=== PATIENT | male | born 1995 | race Caucasian/White ===

== ENCOUNTER 2020-01-19 23:31 | Inpatient (IN) | payer MEDICAID, OTHER ==
[~2020-01-19] VITALS: Ht 175.3 cm; Wt 77.1 kg
[2020-01-20] MEDS ORDERED: ONDANSETRON HCL/PF 4 MG/2 ML VIAL IVP ONE
[2020-01-20] MEDS ORDERED: IV NS 0.9% 1,000 ML BAG IV ONE
--- NOTE | 2020-01-20 | NUR ---
PT CAME TO THE ED C/O GENERALIZED ABD PAIN +N/V SINCE YESTERDAY. PT AAOX4, VSS, RESPIRATIONS EVEN AND UNLABORED ON RA W/ NAD NOTED. PT CONNECTED TO THE MONITOR AND POX.
[2020-01-20] MEDS ORDERED: ONDANSETRON HCL/PF 4 MG/2 ML VIAL ONE ×2 (00:01→01:26)
[2020-01-20 00:11] LABS: BASOPHILS # (AUTO) 0.1 /CMM (0.0-0.2); BASOPHILS % (AUTO) 0.5 % (0.0-2.0); EOSINOPHILS % (AUTO) 0.2 % (0.0-6.0); HEMATOCRIT 45 % (39-51); LYMPHOCYTES # (AUTO) 0.4 /CMM (0.8-4.8); LYMPHOCYTES % (AUTO) 2.2 % (20.0-44.0); MEAN CORPUSCULAR HGB CONC 33 g/dl (31.0-36.0); MEAN CORPUSCULAR VOLUME 97 fL (80-96); MONOCYTES # (AUTO) 0.4 /CMM (0.1-1.30); MONOCYTES % (AUTO) 2.1 % (2.0-12.0); NEUTROPHILS # (AUTO) 17.2 /CMM (1.8-8.9); PLATELET COUNT (AUTO) 283 /CMM (150-450); RED BLOOD CELL COUNT(AUTO) 4.66 MIL/uL (4.5-6.0); WHITE BLOOD COUNT (AUTO) 18.1 K/uL (4.3-11.0)
[2020-01-20 00:19] LABS: CALCIUM, SERUM 9.3 mg/dL (8.5-10.1); CREATININE 1.3 mg/dL (0.6-1.3); POTASSIUM 4.1 mmol/L (3.5-5.1)
[2020-01-20 00:25] LABS: ALBUMIN 4.5 g/dL (3.4-5.0); BILIRUBIN,DIRECT 0.2 mg/dL (0.0-0.2); BILIRUBIN,TOTAL 0.8 mg/dL (0.2-1.0); TOTAL PROTEIN, SERUM 8.5 g/dL (6.4-8.2)
--- NOTE | 2020-01-20 00:57 | NUR ---
URINE COLLECTED AND SENT TO LAB
[2020-01-20 01:12] LABS: APPEARANCE,URINE Clear (CLEAR); BILIRUBIN,URINE SMALL (NEGATIVE); BLOOD, URINE Moderate Ery/uL (NEGATIVE); COLOR,URINE Yellow (YELLOW); KETONES,URINE 80 (NEGATIVE); LEUKOCYTE ESTERASE ,URINE Negative (NEGATIVE); NITRITE, URINE Negative (NEGATIVE); PROTEIN,URINE 30 mg/dl (NEGATIVE); UGLUCOSE Negative (NEGATIVE); UROBILINOGEN,URINE 0.2 EU/dL (0.2)
[2020-01-20 01:25] LABS: BACTERIA,URINE Few /HPF (None Seen); MUCUS,URINE Many /LPF (None Seen); RBC,URINE TOO NUMEROUS TO COUN /HPF (0-2); SQUAMOUS EPITHELIAL CELL,UR Rare /HPF (None Seen)
[2020-01-20] MEDS ORDERED: DICYCLOMINE HCL INJ 20 MG/2 ML AMPUL IM ONE ×2 (01:25→01:30)
[2020-01-20] MEDS ORDERED: ONDANSETRON HCL/PF 4 MG/2 ML VIAL IV ONE (01:30)
[2020-01-20] MEDS ORDERED: PIPERACILLIN /TAZOBACTAM 3.375 G VIAL IV ONE (02:56)
[2020-01-20] MEDS ORDERED: MORPHINE SULFATE INJ 2 MG/ML DISP.SYRIN ONE (02:56)
[2020-01-20] MEDS ORDERED: MORPHINE SULFATE INJ 2 MG/ML DISP.SYRIN IV ONE (03:00)
[2020-01-20] MEDS ORDERED: PIPERACILLIN /TAZOBACTAM 3.375 G in IV D5W 50 ML IV ONE (03:00)
--- NOTE | 2020-01-20 04:08 | NUR ---
REPORT GIVEN TO TONY JAIME FOR PIPPA
--- NOTE | 2020-01-20 04:54 | NUR ---
PT TRANSFERRED TO ROOM IN STABLE CONDITION
--- NOTE | 2020-01-20 05:17 | NUR ---
RN OPENING NOTES RECEIVED REPORT FROM RN SURGERY RUBIA. Pt ARRIVED TO THE FLOOR VIA WHEELCHAIR. Pt WAS ABLE TO WALK TO ROOM BED WITH STEADY GAIT. Pt IS A/OX4, VERBAL, ABLE TO MAKE NEEDS KNOWN. NO S/S OF ACUTE DISTRESS OR SOB NOTED. RESPIRATIONS EVEN AND UNLABORED WITH EQUAL CHEST RISE AND FALL. IV ACCESS ON RAC #20G, SL. SAFETY MEASURES IN PLACE. BED LOW, LOCKED, HOB ELEVATED, SIDE RAILS UP, CALL LIGHT AND BEDSIDE TABLE WITHIN REACH. WILL CONTINUE TO MONITOR Pt's CONDITION AND SAFETY THROUGHOUT THE NIGHT.
--- NOTE | 2020-01-20 05:21 | NUR ---
RN NOTES Pt REFUSED HEAD TO TOE SKIN ASSESSMENT. PER Pt SAID HE HAS NO WOUNDS, NO BRUISES ON HIS BODY.
[2020-01-20 05:35] VITALS: BP 134/70
[2020-01-20] MEDS ORDERED: ONDANSETRON HCL/PF 4 MG/2 ML VIAL IVP PRN (06:30)
--- NOTE | 2020-01-20 07:00 | NUR ---
RN CLOSING NOTES NO SIGNIFICANT CHANGES IN Pt's CONDITION. Pt REMAINED STABLE PER BASELINE. NO S/S OF ACUTE DISTRESS OR SOB NOTED. ALL NEEDS MET AND ATTENDED TO. SAFETY MEASURES IN PLACE. Pt IS RESTING COMFORTABLY IN BED. WILL ENDORSE TO DAYSHIFT RN Pt's PIPPA.
[2020-01-20] MEDS: IV NS 0.9% 1,000 ML IV PRN ×2 (07:06→15:33)
--- NOTE | 2020-01-20 07:20 | NUR ---
MS RN NOTES RECEIVED PATIENT IN BED, ALERT AND AWAKE ORIENTED X4. NO SOB. C/O ABDOMINAL PAIN 08/05, TOLERABLE PER PATIENT AND DOES NOT WANT ANY PAIN MEDICATION AT THIS TIME. AMBULATORY WITH STEADY GAIT. REMAINS NPO. RIGHT AC # 20 INTACT AND PATENT INFUSING NS @ 100 ML/HR. BED IN LOWEST POSITION ,LOCKED. BED SIDERAILS UPX2. CALL LIGHT WITHIN REACH. ABLE TO VERBALIZE NEEDS.
[2020-01-20 08:00] VITALS: BP 121/70
[2020-01-20] MEDS: PANTOPRAZOLE 40 MG VIAL IV SCH (08:17)
[2020-01-20] MEDS: PIPERACILLIN /TAZOBACTAM 3.375 G in IV D5W 100 ML IV SCH ×2 (10:02→21:07)
--- NOTE | 2020-01-20 11:40 | NUR ---
MS RN NOTES COVID TEST DONE, SENT TO LAB.
[2020-01-20] MEDS ORDERED: PIPERACILLIN /TAZOBACTAM 4.5 G in IV D5W 50 ML IV SCH (12:00)
[2020-01-20 15:47] LABS: CREATININE 1.1 mg/dL (0.6-1.3)
[2020-01-20 16:01] LABS: BASOPHILS % (AUTO) 0.2 % (0.0-2.0); HEMATOCRIT 45 % (39-51); HEMOGLOBIN 14.6 g/dL (13.5-17.5); LYMPHOCYTES # (AUTO) 1.5 /CMM (0.8-4.8); LYMPHOCYTES % (AUTO) 11.6 % (20.0-44.0); MEAN CORPUSCULAR HGB CONC 33 g/dl (31.0-36.0); MEAN CORPUSCULAR VOLUME 98 fL (80-96); MONOCYTES # (AUTO) 0.9 /CMM (0.1-1.30); MONOCYTES % (AUTO) 7.2 % (2.0-12.0); NEUTROPHILS # (AUTO) 10.6 /CMM (1.8-8.9); PLATELET COUNT (AUTO) 242 /CMM (150-450); RED BLOOD CELL COUNT(AUTO) 4.55 MIL/uL (4.5-6.0); WHITE BLOOD COUNT (AUTO) 13.1 K/uL (4.3-11.0)
--- NOTE | 2020-01-20 16:45 | NUR ---
MS RN NOTES PATIENT LEFT VIA BED ACCOMPANIED BY 2 OR PERSONNEL. PATIENT LEFT IN STABLE CONDITION .
--- NOTE | 2020-01-20 16:45 | NUR ---
MS RN NOTES PATIENT OFF UNIT, IN OR FOR SCHEDULED LAPAROSCOPY, APPENDECTOMY, POSSIBLE OPEN.
[2020-01-20] MEDS ORDERED: MIDAZOLAM HCL 2 MG/2ML VIAL ONE (16:47)
[2020-01-20] MEDS ORDERED: FAMOTIDINE/PF INJ 20 MG/2 ML VIAL IV ONE (16:47)
[2020-01-20] MEDS ORDERED: FENTANYL PF 250MCG/5ML AMPUL ONE (16:47)
[2020-01-20] MEDS ORDERED: ROCURONIUM BROMIDE 50 MG/5 ML ONE (16:48)
[2020-01-20] MEDS ORDERED: LIDOCAINE HCL/MPF 1% 30 ML VIAL IJ ONE (17:20)
[2020-01-20] MEDS ORDERED: BUPIVACAINE MPF 0.5% W/EPI INJ 30 ML VIAL ONE (17:20)
--- NOTE | 2020-01-20 18:32 | NUR ---
MS RN NOTES PATIENT STILL IN OR. WILL ENDORSE TO ONCOMING SHIFT.
--- NOTE | 2020-01-20 19:25 | NUR ---
Recieved from surgery awake and alert denies pain IV site rt AC NS 100ml hr infusing abd 3 sites GLUED sites cell phone given to him.
[2020-01-20 19:39] VITALS: BP 154/70
[2020-01-20 19:56] LABS: APPEARANCE,URINE CLEAR (CLEAR); BILIRUBIN,URINE NEGATIVE (NEGATIVE); BLOOD, URINE SMALL Ery/uL (NEGATIVE); COLOR,URINE YELLOW (YELLOW); KETONES,URINE NEGATIVE (NEGATIVE); LEUKOCYTE ESTERASE ,URINE NEGATIVE (NEGATIVE); NITRITE, URINE NEGATIVE (NEGATIVE); PH,URINE 7.5 (5.0-8.0); PROTEIN,URINE NEGATIVE (NEGATIVE); UGLUCOSE NEGATIVE (NEGATIVE); UROBILINOGEN,URINE 0.2 EU/dL (0.2)
[2020-01-20 20:00] VITALS: BP 154/70
[2020-01-20 20:30] VITALS: BP 122/58
[2020-01-21] MEDS: MORPHINE SULFATE INJ 2 MG/ML DISP.SYRIN IV PRN ×2 (03:01→07:58)
--- NOTE | 2020-01-21 04:45 | NUR ---
ENDING NOTES: ALERT AND ORIENTATED MEDICATED X1 mORPHONE iv AND EFFECTIVE FOR SURGICAL SITE iNC sPIR AT THE BED SIDE WILL EXPLAIN THE USE AND BENEFITS IN THE am WHEN MORE AWAKE. NO C/O NAUSEA OR VOMITING USE HIS CELL PHONE TO TALK TO HIS FAMILY
[2020-01-21] MEDS: PIPERACILLIN /TAZOBACTAM 3.375 G in IV D5W 100 ML IV SCH ×3 (05:12→21:42)
[2020-01-21 06:51] LABS: THYROID STIMULATING HORMONE 0.408 uIU/mL (0.358-3.74)
[2020-01-21 06:55] LABS: CALCIUM, SERUM 8.2 mg/dL (8.5-10.1); MAGNESIUM 1.6 mg/dL (1.8-2.4); POTASSIUM 4.2 mmol/L (3.5-5.1)
[2020-01-21 07:03] LABS: BASOPHILS % (AUTO) 0.2 % (0.0-2.0); HEMATOCRIT 42 % (39-51); HEMOGLOBIN 13.7 g/dL (13.5-17.5); LYMPHOCYTES # (AUTO) 1.1 /CMM (0.8-4.8); LYMPHOCYTES % (AUTO) 8.6 % (20.0-44.0); MEAN CORPUSCULAR HGB CONC 33 g/dl (31.0-36.0); MEAN CORPUSCULAR VOLUME 99 fL (80-96); MONOCYTES % (AUTO) 7.9 % (2.0-12.0); NEUTROPHILS # (AUTO) 10.4 /CMM (1.8-8.9); NEUTROPHILS % (AUTO) 83.3 % (43.0-81.0); PLATELET COUNT (AUTO) 233 /CMM (150-450); RED BLOOD CELL COUNT(AUTO) 4.24 MIL/uL (4.5-6.0); WHITE BLOOD COUNT (AUTO) 12.5 K/uL (4.3-11.0)
[2020-01-21 08:00] VITALS: BP 128/65
--- NOTE | 2020-01-21 08:00 | NUR ---
MS RN OPENING NOTES RECEIVED PATIENT IN BED, ALERT AND AWAKE ORIENTED X4. NO SOB. NO CARDIAC OR RESPIRATORY DISTRESS NOTED. NO SOB NOTED. SATURATING WELL ON ROOM AIR. AMBULATORY WITH STEADY GAIT. IV ACCESS NOTED ON RIGHT AC # 20 INTACT AND PATENT INFUSING NS @ 100 ML/HR. SAFETY PRECAUTIONS IN PLACE. BED IN LOWEST POSITION ,LOCKED. BED SIDE RAILS UPX2. CALL LIGHT WITHIN REACH. WILL CONT TO MONITOR.
[2020-01-21] MEDS: PANTOPRAZOLE 40 MG VIAL IV SCH (08:17)
[2020-01-21] MEDS: Magnesium 1GM/D5W 100ML PREMIX 100 ML IV SCH ×2 (09:23→10:33)
[2020-01-21] MEDS ORDERED: HYDROCODONE/APAP 5/325MG TABLET PO PRN (10:00)
[2020-01-21 16:00] VITALS: BP 120/56
--- NOTE | 2020-01-21 18:51 | NUR ---
MS RN CLOSING NOTES PATIENT IN BED, ALERT AND AWAKE ORIENTED X4. NO SOB. NO CARDIAC OR RESPIRATORY DISTRESS NOTED. NO SOB NOTED. SATURATING WELL ON ROOM AIR. AMBULATORY WITH STEADY GAIT. IV ACCESS NOTED ON RIGHT AC # 20 INTACT AND PATENT INFUSING NS @ 100 ML/HR. SAFETY PRECAUTIONS IN PLACE. BED IN LOWEST POSITION ,LOCKED. BED SIDE RAILS UPX2. CALL LIGHT WITHIN REACH. WILL CONT TO MONITOR.
--- NOTE | 2020-01-21 19:55 | NUR ---
RN OPENING NOTES RECEIVED REPORT FROM PRASADHIFT RNALEAH. FOUND Pt AWAKE, RESTING IN BED. RESPIRATIONS EVEN AND UNLABORED WITH EQUAL CHEST RISE AND FALL. Pt IS A/OX4, VERBAL, ABLE TO MAKE NEEDS KNOWN. NO S/S OF ACUTE DISTRESS OR SOB NOTED. NO C/O SEVERE PAIN AT THIS TIME. IV ACCESS LOCATED ON RAC #20G; IVF NS RUNNING @100ML/HR. SAFETY MEASURES IN PLACED. BED LOW, LOCKED, HOB ELEVATED, SIDE RAILS UP, CALL LIGHT AND BEDSIDE TABLE WITHIN REACH. WILL CONTINUE TO MONITOR Pt's CONDITION THROUGHOUT THE NIGHT.
[2020-01-21 20:30] VITALS: BP 120/56
[2020-01-22] MEDS: PIPERACILLIN /TAZOBACTAM 3.375 G in IV D5W 100 ML IV SCH ×2 (05:15→13:05)
[2020-01-22] MEDS: IV NS 0.9% 1,000 ML IV PRN (05:23)
[2020-01-22 06:30] LABS: BASOPHILS % (AUTO) 0.5 % (0.0-2.0); EOSINOPHILS % (AUTO) 0.3 % (0.0-6.0); HEMATOCRIT 42 % (39-51); HEMOGLOBIN 13.7 g/dL (13.5-17.5); LYMPHOCYTES # (AUTO) 2.1 /CMM (0.8-4.8); LYMPHOCYTES % (AUTO) 25.5 % (20.0-44.0); MEAN CORPUSCULAR HGB CONC 33 g/dl (31.0-36.0); MEAN CORPUSCULAR VOLUME 99 fL (80-96); MONOCYTES # (AUTO) 0.9 /CMM (0.1-1.30); MONOCYTES % (AUTO) 10.3 % (2.0-12.0); NEUTROPHILS # (AUTO) 5.2 /CMM (1.8-8.9); NEUTROPHILS % (AUTO) 63.4 % (43.0-81.0); PLATELET COUNT (AUTO) 217 /CMM (150-450); RED BLOOD CELL COUNT(AUTO) 4.25 MIL/uL (4.5-6.0); WHITE BLOOD COUNT (AUTO) 8.2 K/uL (4.3-11.0)
--- NOTE | 2020-01-22 06:35 | NUR ---
RN CLOSING NOTES NO SIGNIFICANT CHANGES IN Pt's CONDITION. Pt REMAINED STABLE PER BASELINE. NO S/S OF ACUTE DISTRESS OR SOB NOTED DURING THE NIGHT. ALL NEEDS MET AND ATTENDED TO. SAFETY MEASURES IN PLACE. Pt IS RESTING COMFORTABLY IN BED. WILL ENDORSE TO DAYSHIFT RN Pt's PIPPA.
[2020-01-22 06:40] LABS: CALCIUM, SERUM 7.9 mg/dL (8.5-10.1); CREATININE 1.1 mg/dL (0.6-1.3); MAGNESIUM 1.8 mg/dL (1.8-2.4); POTASSIUM 3.9 mmol/L (3.5-5.1)
[2020-01-22 08:00] VITALS: BP 117/57
[2020-01-22 08:16] VITALS: BP 117/57
[2020-01-22] MEDS: PANTOPRAZOLE 40 MG VIAL IV SCH (08:29)
[2020-01-22 16:52] VITALS: BP 123/68
== END 2020-01-22 17:30 | disposition home or self-care (01) | DRG 233 ==
LOC: ER 23:32 → MEDSG2 01-20 03:37
PROVIDERS: ADMIT Nurse Practitioner Acute Care; ATTEND Nurse Practitioner Acute Care
PROC: 0DTJ4ZZ Resection of Appendix, Percutaneous Endoscopic Approach (ICD-10-PCS; principal; 2020-01-20)
DX: K35.32 Acute appendicitis with perforation, localized peritonitis, and gangrene, without abscess (principal); F17.200 Nicotine dependence, unspecified, uncomplicated; R73.9 Hyperglycemia, unspecified; Z83.3 Family history of diabetes mellitus; Z88.1 Allergy status to other antibiotic agents; Z88.2 Allergy status to sulfonamides; K38.1 Appendicular concretions
CPT/HCPCS: 36415; 71045-TC; 80048-TC; 80061-TC; 80076-TC; 81000-TC; 83690-TC; 83735-TC; 84100-TC; 84443-TC; 85025-TC; 85610-TC; 85730-TC; 86850-TC; 87081-TC; 88304-TC; C9113; G0378; J0500; J0690; J2250; J2270; J2405; J2543; J2704; J2765; J3010; J3475; J3490; J7030; J7060; U0003-CS

== ENCOUNTER 2020-12-17 20:33 | Emergency (ER) | payer MEDICAID ==
[~2020-12-17] VITALS: Ht 175.3 cm; Wt 77.1 kg
--- NOTE | 2020-12-17 21:01 | NUR ---
PT TO ER BED 1 C/O LOWER ABDOMINAL PAIN SINCE THURSDAY W/ DIARRHEA. PATIENT DENIES NAUSEA/ VOMITING. ALERT AND ORIENTED x4. DENIES SOB. CONNECTED TO THE MONITOR. CURRENTLY AMBULATING TO THE RESTROOM TO GIVE URINE.
[2020-12-17] MEDS ORDERED: KETOROLAC TROMETHAMINE INJ 30 MG/ML VIAL ONE (21:25)
[2020-12-17] MEDS ORDERED: IV NS 0.9% 1,000 ML BAG IV ONE (21:30)
[2020-12-17] MEDS ORDERED: KETOROLAC TROMETHAMINE INJ 30 MG/ML VIAL IV ONE (21:30)
[2020-12-17 21:36] LABS: BASOPHILS % (AUTO) 0.2 % (0.0-2.0); EOSINOPHILS % (AUTO) 0.1 % (0.0-6.0); HEMATOCRIT 48 % (39-51); HEMOGLOBIN 16.1 g/dL (13.5-17.5); LYMPHOCYTES # (AUTO) 1.2 /CMM (0.8-4.8); LYMPHOCYTES % (AUTO) 14.4 % (20.0-44.0); MEAN CORPUSCULAR HGB CONC 34 g/dl (31.0-36.0); MEAN CORPUSCULAR VOLUME 96 fL (80-96); MONOCYTES # (AUTO) 1.2 /CMM (0.1-1.30); MONOCYTES % (AUTO) 15.3 % (2.0-12.0); NEUTROPHILS # (AUTO) 5.7 /CMM (1.8-8.9); PLATELET COUNT (AUTO) 235 /CMM (150-450); RED BLOOD CELL COUNT(AUTO) 4.97 MIL/uL (4.5-6.0); WHITE BLOOD COUNT (AUTO) 8.2 K/uL (4.3-11.0)
--- NOTE | 2020-12-17 21:37 | NUR ---
URINE AND BLOOD COLLECTED AND SENT TO THE LAB.
[2020-12-17 21:46] LABS: CALCIUM, SERUM 8.9 mg/dL (8.5-10.1); CREATININE 1.3 mg/dL (0.6-1.3); POTASSIUM 3.7 mmol/L (3.5-5.1)
[2020-12-17 21:51] LABS: ALBUMIN 3.7 g/dL (3.4-5.0); BILIRUBIN,DIRECT 0.1 mg/dL (0.0-0.2); BILIRUBIN,TOTAL 0.3 mg/dL (0.2-1.0); TOTAL PROTEIN, SERUM 7.9 g/dL (6.4-8.2)
[2020-12-17 21:56] LABS: BILIRUBIN,URINE Negative (NEGATIVE); COLOR,URINE YELLOW (YELLOW); LEUKOCYTE ESTERASE ,URINE Negative (NEGATIVE); NITRITE, URINE Negative (NEGATIVE); PROTEIN,URINE 30 mg/dl (NEGATIVE); UGLUCOSE Negative (NEGATIVE); UROBILINOGEN,URINE 0.2 EU/dL (0.2)
[2020-12-17 22:03] LABS: BACTERIA,URINE Rare /HPF (None Seen); SQUAMOUS EPITHELIAL CELL,UR Few /HPF (None Seen); WBC,URINE NONE SEEN /HPF (0-3)
[2020-12-17] MEDS ORDERED: IBUP-1955 PO (22:19)
[2020-12-17 22:30] LABS: LYMPHOCYTES % (MANUAL) 16 % (16-48); MONOCYTES % (MANUAL) 16 % (0-11.0); NEUTROPHILS % (MANUAL) 68 (42-76)
[2020-12-17 22:33] VITALS: BP 122/75
--- NOTE | 2020-12-17 22:33 | NUR ---
Patient discharged to home in stable condition. Written and verbal after care instructions given. Patient verbalizes understanding of instruction.
--- NOTE | 2020-12-17 22:33 | NUR ---
IV removed. Catheter intact and site benign. Pressure and 4x4 applied to site. No bleeding noted.
== END 2020-12-17 22:33 | disposition home or self-care (01) ==
LOC: ER 20:38
DX: A08.4 Viral intestinal infection, unspecified (principal); F17.200 Nicotine dependence, unspecified, uncomplicated; Z90.89 Acquired absence of other organs; Z88.2 Allergy status to sulfonamides; Z88.1 Allergy status to other antibiotic agents
CPT/HCPCS: 36415; 80048; 80076; 81001; 83690; 85007; 85025; 96361; 96374; 99283; J1885; J7030